=== PATIENT | female | born 1945 | race Caucasian/White ===

== ENCOUNTER 2023-04-01 16:10 | Emergency (ER) | payer MEDICARE, SELFPAY ==
--- NOTE | ~2023-04-01 | XR_ITS ---
EXAM: XR hand RT min 3V DATE: 04/01/2023 17:05 HISTORY: fall, PAIN IN POSTERIOR HAND, ARTHRITIS . COMPARISON: None available. FINDINGS: Decreased mineralization. Possible nondisplaced oblique fracture of the distal aspect of t he right fifth metacarpal. Severe lateral subluxation of the right first distal phalanx. No lytic or blastic lesion. Scattered moderate arthritic changes. No erosion or periosteal change. Soft tissues w ithin normal limits. IMPRESSION: Possible nondisplaced oblique distal right fifth metacarpal fracture. Acute versus chronic severe lateral subluxation of the right first distal phalanx. Correlate above findings with acute pain/tenderness. Reviewed, dictated and finalized at location K. [employer]IST[employer] IMPRESSION: Possible nondisplaced oblique distal right fifth metacarpal fracture. Acute versus chronic severe lateral subluxation of the right first distal phala nx. Correlate above findings with acute pain/tenderness.
--- NOTE | ~2023-04-01 | XR_ITS ---
EXAM: XR knee LT min 4V DATE: 04/01/2023 17:05 HISTORY: fall, PAIN PROXIMAL KNEE, SURGERY 3 YRS AGO . COMPARISON: None available. FINDINGS: Decreased mineralization. Screw and plate fixation of the medial tibial plateau. Bone ceme nt in the medial tibial plateau. No fracture or dislocation. No lytic or blastic lesion. Moderate tri compartmental left knee osteoarthritis. Moderate volume joint fluid.. No erosion or periosteal change . Soft tissues within normal limits. IMPRESSION: No acute osseous finding in the left knee. No radiographic evidence of hardware-related c omplication. Reviewed, dictated and finalized at location K. [employer] IMPRESSION: No acute osseous finding in the left knee. No radiographic evidence of hardware-related complication.
[2023-04-01 16:22] VITALS: BP 154/73; PULSE 93; RESP 20; TEMP 36.4; O2SAT 99
--- NOTE | 2023-04-01 17:32 | ED.FALL ---
HPI - Fall General Chief Complaint: Fall Stated Complaint: fall Time Seen by Provider: 04/01/23 17:20 History of Present Illness HPI Narrative: 77-year-old female presents to emergency department after mechanical fall. Patient is reporting pain to the dorsum of her right hand with associated bruising and pain to her left knee. Patient states she tripped over a curb, felt herself going down and lowered herself to the ground, landing on her back. She is unsure if she hit her knee or twisted it. She did not hit her head or lose consciousness. She denies neck pain or back pain, other injuries acquired. States her knee pain is worse when she bears weight. Related Data Allergies Allergy/AdvReac Type Severity Reaction Status Date / Time No Known Allergies Allergy Verified 04/01/23 16:11 Review of Systems Review of Systems: CONSTITUTIONAL: Denies fever, chills, or sweats. EYES: Denies visual changes, redness, or discharge. ENT: Denies rhinorrhea, congestion, sore throat, or otalgia. CARDIOVASCULAR: Denies chest pain, palpitations, or edema. RESPIRATORY: Denies cough or dyspnea. GASTROINTESTINAL: Denies abdominal pain, nausea, vomiting, or diarrhea. GENITOURINARY: Denies dysuria or hematuria. SKIN: Denies rash or itching. MUSCULOSKELETAL: See HPI NEUROLOGIC: Denies headache, numbness, or weakness. PSYCHIATRIC: Denies anxiety or depression. Exam Narrative: GENERAL: Well-appearing, well-nourished, and in no acute distress. HEAD: Normocephalic, atraumatic. ENT: Nares clear, no rhinorrhea or epistaxis. Mucous membranes moist. NECK: No midline cervical spinous tenderness, step-offs or deformities. BACK: No midline thoracolumbar spinous tenderness, step-offs or deformities. CHEST: Clear to auscultation. No respiratory distress. HEART: Regular rate and rhythm. No murmur heard. Normal peripheral pulses. ABDOMEN: Soft, nontender, nondistended, normal active bowel sounds. EXTREMITIES: LUE: Hematoma and ecchymosis overlying the dorsum of the hand over the 1st through 3rd metacarpals with tenderness. No snuffbox tenderness. No tenderness over the radius or ulna. Full range of motion of fingers and wrist. No tenderness to the 5th metacarpal or fingers. Radial pulse 2 +. Sensation intact throughout. Cap refill less than 2. LLE: Mild edema to the left knee without tenderness. Pain with flexion and extension. Full active and passive range of motion. No laxity with varus or valgus stress. Negative anterior and posterior drawer. Cap refill less than 2. DP pulse 2 +. No warmth. SKIN: Warm, dry, no rash. NEURO: No focal deficits. Alert and oriented x3 Course Vital Signs Vital signs: Vital Signs Temperature 97.6 F 04/01/23 16:22 Pulse Rate 93 04/01/23 16:22 Respiratory Rate 20 04/01/23 16:22 Blood Pressure 154/73 H 04/01/23 16:22 Pulse Oximetry 99 04/01/23 16:22 Oxygen Delivery Room Air 04/01/23 16:22 Temperature 97.6 F 04/01/23 16:22 Pulse Rate 93 04/01/23 16:22 Respiratory Rate 20 04/01/23 16:22 Blood Pressure 154/73 H 04/01/23 16:22 Pulse Oximetry 99 04/01/23 16:22 Oxygen Delivery Room Air 04/01/23 16:22 MDM - Fall MDM Narrative Medical decision making narrative: 77-year-old female presents emergency department after mechanical fall. See HPI for further history. Triage vitals significant for elevated blood pressure, otherwise unremarkable. She did not hit her head or lose consciousness. Complaining of left hand pain and left knee pain. Exam is significant for the above. X-ray of the hand shows possible nondisplaced oblique distal right 5th metacarpal fracture. There is no tenderness over the 5th metacarpal, consistent with fracture. 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 X-ray of the left knee shows no acute osseous finding, no radiographic evidence of hardw
== END 2023-04-01 18:08 | disposition home or self-care (01) ==
LOC: ANHED 17:54
PROVIDERS: Emergency Provider Physician Assistant
DX: S60.221A Contusion of right hand, initial encounter (principal); S86.912A Strain of unspecified muscle(s) and tendon(s) at lower leg level, left leg, initial encounter; W10.1XXA Fall (on)(from) sidewalk curb, initial encounter
CPT/HCPCS: 73130; 73564; 99284